=== PATIENT | male | born 1980 | race African-American/Black ===

== ENCOUNTER 2021-10-09 14:34 | Emergency (ER) | payer SELFPAY ==
[~2021-10-09] VITALS: Ht 188 cm; Wt 97.5 kg
== END 2021-10-09 20:26 | disposition home or self-care (01) ==
LOC: ED 14:34
DX: Z20.2 Contact with and (suspected) exposure to infections with a predominantly sexual mode of transmission (principal)
CPT/HCPCS: 81001; 87491; 96372; 99283; J0696